=== PATIENT | female | born 1955 | race Caucasian/White ===

== ENCOUNTER 2019-09-16 23:46 | Emergency (ER) | payer MEDICARE, OTHER ==
[2019-09-17] MEDS ORDERED: Dexamethasone 10 MG/ML VIAL ONE (00:20)
== END 2019-09-17 01:00 | disposition home or self-care (01) ==
LOC: ERS 23:46
DX: J30.1 Allergic rhinitis due to pollen (principal); E11.9 Type 2 diabetes mellitus without complications; E78.5 Hyperlipidemia, unspecified; E78.00 Pure hypercholesterolemia, unspecified; Z79.84 Long term (current) use of oral hypoglycemic drugs; Z79.899 Other long term (current) drug therapy
CPT/HCPCS: 96372; 99283; J1100

== ENCOUNTER 2019-09-18 13:57 | Observation (INO) | payer MEDICARE, OTHER ==
[2019-09-18 14:37] LABS: #Lymphocytes 0.9 thou/uL (1.20-3.40); #Monocytes 0.3 thou/uL (0.11-0.59); #Neutrophils 3.6 thou/uL (1.40-6.50); %Basophils 0.2 % (0.0-1.0); %Eosinophils 0.2 % (0.0-10.0); %Lymphocytes 18.3 % (21.0-51.0); %Monocytes 5.8 % (0.0-10.0); %Neutrophils 75.5 % (42.0-75.0); Hemoglobin 14.1 g/dL (12.0-16.0); Mean Corpuscular HGB CONC 33.4 g/dL (32.0-36.0); Mean Corpuscular Hemoglobin 29.4 pg (27.0-31.0); Mean Corpuscular Volume 87.9 fL (78.0-98.0); Platelet Count 197 thou/uL (130-400); RBC Distribution Width 11.8 % (11.5-14.5); White Blood Cell (WBC) Count 4.8 thou/uL (4.8-10.8)
[2019-09-18] MEDS ORDERED: Ondansetron PF 4 MG/2 ML Vial ONE (14:46)
[2019-09-18] MEDS ORDERED: Azithromycin 500 MG VIAL ONE (14:46)
[2019-09-18] MEDS ORDERED: Acetaminophen 500 MG TAB ONE (14:46)
[2019-09-18] MEDS ORDERED: cefTRIAXone\\ROCEPHIN 2 GM VIAL ONE (14:46)
[2019-09-18 14:57] LABS: ALT (SGPT) 33 U/L (8-55); AST (SGOT) 20 U/L (5-34); Albumin 4.5 g/dL (3.4-4.8); Alkaline Phosphatase 64 U/L (40-110); Anion Gap 14 mmol/L (10-20); BUN (Urea Nitrogen) 18 mg/dL (9.8-20.1); Bilirubin, Total 0.3 mg/dL (0.2-1.2); Calc. Creatinine Clearance 0 mL/min (70-130); Calcium 9.6 mg/dL (7.8-10.44); Carbon Dioxide 27 mmol/L (23-31); Chloride 102 mmol/L (98-107); Estimated GFR-MDRD 70; Globulin 2.9 g/dL (2.4-3.5); Glucose 194 mg/dL (80-115); Potassium 3.7 mmol/L (3.5-5.1); Protein, Total 7.4 g/dL (6.0-8.3); Sodium 139 mmol/L (136-145)
--- NOTE | 2019-09-18 14:59 | RAD ---
RADIOGRAPH CHEST 2 VIEWS: DATE: 09/18/2019 HISTORY: 64-year-old female with fever and productive cough FINDINGS: There is no airspace density, pulmonary edema, pleural effusion, pneumothorax, or cardiomegaly. IMPRESSION: No acute cardiopulmonary findings.
[2019-09-18] MEDS ORDERED: Ondansetron ODT 4 MG TAB PO PRN (17:19)
[2019-09-18] MEDS ORDERED: Acetaminophen 325 MG TAB PO PRN (17:19)
[2019-09-18] MEDS ORDERED: Ondansetron PF 4 MG/2 ML Vial IVP PRN (17:19)
--- NOTE | 2019-09-18 17:19 | PDOC.FPRHP ---
- History of Present Illness Chief Complaint: cough, fever History of Present Illness: Pt is a 64-yo F from [place] here visiting family. She developed a cough on night and came to the ER and got a steroid shot, thinking she was having a bout of seasonal allergies. However, last night, she began coughing more, feeling tired and having "skin pain." She felt cold and subjective fevers. + nausea, no vomiting. Received both her flu shot and pneumonia shot this year. Sick contacts include potentially interacting with someone when she took her to the [place] last [place]. ED Course: 2 L NS, rocephin, azithromycin. - Allergies/Adverse Reactions Allergies Allergy/AdvReac Type Severity Reaction Status Date / Time amoxicillin [From Augmentin] AdvReac severe Verified 09/18/19 19:58 nausea clavulanic acid AdvReac severe Verified 09/18/19 19:58 [From Augmentin] nausea - Home Medications Comments: Metformin 500 mg BID Celexa OTC allergy medications - History PMHx: T2DM, seasonal allergies, asthma, postmenopausal depression PSHx: not assessed FHx: - non-contributory Social: - denies smoking, drinking alcohol, and illicit drugs. - Review of Systems General: reports: fever/chills, fatigue Eyes: denies: eye pain ENT: reports: nasal congestion, rhinorrhea Respiratory: reports: cough. denies: shortness of breath Cardiovascular: denies: chest pain, edema Gastrointestinal: reports: nausea. denies: vomiting, diarrhea, abdominal pain Genitourinary: denies: dysuria Skin: denies: rashes Musculoskeletal: denies: pain Neurological: denies: weakness Psychological: denies: anxiety, depression - Vital signs BP: 149/76, Pulse: 109, Resp: 20, Temp: 102.4 (Oral), Pain: 5, O2 sat: 98 on ( Room Air), Time: 09/18/2019 13:59. - Physical Exam Constitutional: NAD, awake, alert and oriented -Constitutional: appears tired but answers all questions appropriately HEENT: normocephalic and atraumatic, PERRLA, EOMI, no scleral icterus, grossly normal vision, grossly normal hearing, MMM, oropharynx clear Neck: supple, trachea midline, no LAD Heart: RRR, normal S1/S2, no murmurs/rubs/gallops Lungs: CTAB, other (mild wheezing heard anteriorly bilaterally in upper lobes) Abdomen: soft, bowel sounds present, no masses/distention Neurological: no focal deficit Skin: no rash/lesions Heme/Lymphatic: no unusual bruising or bleeding Psychiatric: normal mood and affect FMR H&P: Results - Labs Result Diagrams: 09/18/19 14:23 09/18/19 14:23 Lab results: WBC 4.8 thou/uL (4.8-10.8) 09/18/19 14:23 Hgb 14.1 g/dL (12.0-16.0) 09/18/19 14:23 Hct 42.2 % (36.0-47.0) 09/18/19 14:23 MCV 87.9 fL (78.0-98.0) 09/18/19 14:23 Plt Count 197 thou/uL (130-400) 09/18/19 14:23 Neutrophils % 75.5 % (42.0-75.0) H 09/18/19 14:23 Sodium 139 mmol/L (136-145) 09/18/19 14:23 Potassium 3.7 mmol/L (3.5-5.1) 09/18/19 14:23 Chloride 102 mmol/L (98-107) 09/18/19 14:23 Carbon Dioxide 27 mmol/L (23-31) 09/18/19 14:23 BUN 18 mg/dL (9.8-20.1) 09/18/19 14:23 Creatinine 0.82 mg/dL (0.6-1.1) 09/18/19 14:23 Glucose 194 mg/dL (80-115) H 09/18/19 14:23 Lactic Acid 2.1 mmol/L (0.5-2.2) 09/18/19 14:23 Calcium 9.6 mg/dL (7.8-10.44) 09/18/19 14:23 Total Bilirubin 0.3 mg/dL (0.2-1.2) 09/18/19 14:23 AST 20 U/L (5-34) 09/18/19 14:23 ALT 33 U/L (8-55) 09/18/19 14:23 Alkaline Phosphatase 64 U/L (40-110) 09/18/19 14:23 Serum Total Protein 7.4 g/dL (6.0-8.3) 09/18/19 14:23 Albumin 4.5 g/dL (3.4-4.8) 09/18/19 14:23 - Radiology Interpretation Chest x-ray Status: report reviewed by me (negative for acute process) FMR H&P: A/P - Problem List (1) Influenza A Current Visit: Yes Status: Acute Code(s): J10.1 - FLU DUE TO OTH IDENT INFLUENZA VIRUS W OTH RESP MANIFEST (2) Type 2 diabetes mellitus Current Visit: Yes Status: Acute (3) Asthma Current Visit: Yes Status: Acute Code(s): J45.909 - UNSPECIFIED ASTHMA, UNCOMPLICATED (4) Depression Current Visit: Yes Status: Acute Code(s): F32.9 - MAJOR DEPRESSIVE DISORDER , SINGLE EPISODE, UNSPECIFIED - Plan Influenza A+ - patient febrile w/ positive Influenza A - fluids given in ER along w/ ceftriaxone and azithromycin - will begin 5 day course of tamiflu - duonebs prn for mild wheezing - encourage oral intake - monitor O2 status T2DM Depression Asthma - continue home medications. VTE PPx: SCDs Disposition/LOS: medical obs. LOS < 48H. FMR H&P: Upper Level - Plan Date/Time: 09/18/19 5299 INavi DO, have evaluated this patient and agree with findings/plan as outlined by technology intern resident. Pertinent changes/additions are listed here. HPI Ms. 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 She denies any dyspnea, chest pain, syncope or decreased PO intake. She has no known underlying cardiac or pulmonary pathology. Lives at home with her . She does not smoke. She was given 2L of fluid, azithro and rocephin in ED PE General: NAD HEENT: NCAT Chest: even inspiratory and expiratory effort, no retractions Abdomen: non distended, NTTP MSK: no weakness, or loss of ROM noted Extremities: non-edematous, pulses present Neuro: grossly intact, no focal deficits See technology intern portion for full ROS, PE, labs and vitals. A/P Influenza A - cxr, labs wnl, no O2 requirement or co-morbid conditions - s/p 2L fluid, DC abx - begin Tamiflu - supportive care Dispo: LOS<48hrs Addendum - Attending - Attending Attestation Date/Time: 09/18/19 1069 I personally evaluated the patient and discussed the management with Dr. Moreno. I agree with the History, Examination, Assessment and Plan documented above with any addition or exceptions noted below.
[2019-09-18] MEDS ORDERED: Lactated Ringer's 1,000 ML IV SCH (17:30)
[2019-09-18 17:31] LABS: Lactic Acid 2.5 mmol/L (0.5-2.2)
[2019-09-18 18:50] VITALS: BMI 41.8
[2019-09-18] MEDS: Oseltamivir 75 MG CAP PO SCH (20:06)
[2019-09-18] MEDS ORDERED: Benzonatate 100 MG CAP PO PRN (22:04)
[2019-09-18] MEDS ORDERED: Cepastat Lozenges 1 LOZ PO PRN (22:04)
[2019-09-18] MEDS ORDERED: Naproxen 500 MG TAB PO PRN (22:30)
[2019-09-18] MEDS ORDERED: Loratadine 10 MG TAB PO PRN (22:30)
[2019-09-18] MEDS ORDERED: Citalopram 20 MG TAB PO SCH (23:30)
[2019-09-18] MEDS ORDERED: Aspirin 325 mg Enteric Coated Tablet PO SCH (23:30)
[2019-09-19] MEDS: ASPIRIN 250 MG PO PRN ×2 (02:27→09:37)
[2019-09-19] MEDS: ACETAMINOPHEN PO PRN ×2 (02:27→09:37)
[2019-09-19] MEDS: CAFFEINE PO PRN ×2 (02:27→09:37)
--- NOTE | 2019-09-19 05:36 | PDOC.FM ---
- Subjective Subjective: T max overnight 101.5 F Pt c/o sinus congestion, cough and "feeling badly." She is here visiting her son who is a college student at [employer]. - Objective MAR Reviewed: Yes Vital Signs & Weight: Vital Signs (12 hours) Temp Pulse Resp BP Pulse Ox 09/19/19 04:07 99.4 F 82 18 113/54 L 95 09/19/19 01:51 100.5 F H 09/18/19 23:45 101.5 F H 107 H 20 138/65 93 L 09/18/19 19:55 100.4 F H 99 18 118/59 L 94 L 09/18/19 18:40 100.1 F H 98 18 119/54 L 96 Weight Weight 110.722 kg I&O: 09/17/19 09/18/19 09/19/19 05:59 06:59 06:59 Output Total 300 Balance -300 Result Diagrams: 09/18/19 14:23 09/18/19 14:23 Phys Exam - Physical Examination Constitutional: NAD HEENT: moist MMs, sclera anicteric Neck: no nodes, no JVD Respiratory: wheezing present Cardiovascular: RRR, no significant murmur, no rub Gastrointestinal: soft, non-tender, positive bowel sounds Musculoskeletal: no edema, pulses present Neurological: non-focal, normal sensation, moves all 4 limbs Psychiatric: normal affect, A&O x 3 Skin: no rash, normal turgor, cap refill <2 seconds Dx/Plan (1) Influenza A Code(s): J10.1 - FLU DUE TO OTH IDENT INFLUENZA VIRUS W OTH RESP MANIFEST Status: Acute (2) Asthma Code(s): J45.909 - UNSPECIFIED ASTHMA, UNCOMPLICATED Status: Acute (3) Depression Code(s): F32.9 - MAJOR DEPRESSIVE DISORDER, SINGLE EPISODE, UNSPECIFIED Status : Acute (4) Type 2 diabetes mellitus Status: Acute - Plan Plan: Influenza A+ - patient febrile w/ positive Influenza A - fluids given in ER along w/ ceftriaxone and azithromycin, D/C's antibiotics. - Continue 5 day course of tamiflu - duonebs prn for mild wheezing - encourage oral intake - monitor O2 status - addition of mucinex and saline sinus rinse. T2DM Depression Asthma - continue home medications. VTE PPx: SCDs Disposition/LOS: stable, medical obs. LOS < 48H. Addendum - Attending - Attending Attestation Date/Time: 09/19/19 1589 I personally evaluated the patient and discussed the management with Dr. Choi. I agree with the History, Examination, Assessment and Plan documented above with any addition or exceptions noted below. Patient here for influenza. She is improved. Will continue with symptomatic treatment and see how she is feeling today for possible d/c.
[2019-09-19] MEDS ORDERED: Stress 600 With Zinc 1 TAB PO SCH (09:00)
[2019-09-19] MEDS ORDERED: guaiFENesin ER 600 MG TAB PO SCH (09:00)
[2019-09-19] MEDS ORDERED: Calcium Carbonate 600 MG + Vit D TAB PO SCH (09:00)
[2019-09-19] MEDS ORDERED: Multivit, Therapeutic 1 TAB PO SCH (09:00)
[2019-09-19] MEDS: Oseltamivir 75 MG CAP PO SCH (09:36)
[2019-09-19 11:55] VITALS: BP 128/61; TEMP 99.2
--- NOTE | 2019-09-19 15:14 | DIS ---
DATE OF ADMISSION: 09/18/2019 DATE OF DISCHARGE: 09/19/2019 ADMITTING ATTENDING: Leonel Gray MD DISCHARGE ATTENDING: Leonel Gray MD CONSULTS: None. PROCEDURES: None. PRIMARY DIAGNOSES: 1. Influenza type A. 2. Type 2 diabetes mellitus. 3. Asthma. 4. Seasonal allergies. DISCHARGE MEDICATIONS: 1. Tamiflu 75 mg p.o. b.i.d. for 5 days. 2. Naproxen p.r.n. 3. Multivitamin daily. 4. Claritin 10 mg p.o. daily. 5. Mucinex 600 mg p.o. q.12 hours p.r.n. 6. Glucotrol 10 mg p.o. b.i.d.. 7. Celexa 20 mg p.o. at bedtime. 8. Calcium with vitamin D one tab p.o. daily. 9. Tessalon Perles 100 mg p.o. t.i.d. p.r.n. for cough, 30 given. 10. Aspirin 325 mg p.o. at bedtime scheduled daily. HISTORY OF PRESENT ILLNESS/HOSPITAL COURSE: Ms. Pope is a 64-year-old female with history of type 2 diabetes mellitus and asthma, comes in with a history of cough and shortness of breath and body aches, was found to be influenza A positive. She was initially treated with azithromycin and ceftriaxone, IV fluids down in the emergency department. The antibiotics were discontinued. The patient was started on Tamiflu and DuoNeb p.r.n. for her wheezing. Her T-max overnight while in the hospital was 100.5. She had pretty significant body aches and bad feeling from having such a high fever. The patient was visiting with her and her son here in [place] at [facility], where her and her both came down with symptoms. Her went to an urgent care today, the day upon the patient's discharge was diagnosed with flu and given Tamiflu as well as Augmentin. The patient was agreeable to discharge plan and felt much better to go home today on Tamiflu and will follow up with her primary care physician in a week. She is out of town from [place]. DISPOSITION: Stable upon discharge. DISCHARGE INSTRUCTIONS: 1. Location: To home. 2. Diet: Consistent carb. 3. Activity: As tolerated. 4. Followup: Follow up with primary care physician in 1 weeks time. Job ID: [id number] [id number]
[2019-09-19] MEDS ORDERED: Citalopram 20 MG TAB PO SCH (21:00)
[2019-09-19] MEDS ORDERED: Aspirin 325 mg Enteric Coated Tablet PO SCH (21:00)
== END 2019-09-19 15:21 | disposition home or self-care (01) ==
LOC: ERS 13:57 → 2SW 16:55
PROVIDERS: ADMIT Family Medicine; ATTEND Family Medicine
DX: J10.1 Influenza due to other identified influenza virus with other respiratory manifestations (principal); E11.9 Type 2 diabetes mellitus without complications; J45.909 Unspecified asthma, uncomplicated; F32.9 Major depressive disorder, single episode, unspecified; Z88.0 Allergy status to penicillin; Z79.899 Other long term (current) drug therapy; Z79.82 Long term (current) use of aspirin; Z79.84 Long term (current) use of oral hypoglycemic drugs
CPT/HCPCS: 71046; 80053; 82962 ×2; 83605; 85025; 87040; 87804 ×2; 93005; 94640; 96361; 96365; 96374; 96375; 97139; 99285; G0378 ×3; 36415; 36416; J0456; J0696; J2405; J7620; Q0162